=== PATIENT | female | born 1985 | race Caucasian/White ===

== ENCOUNTER 2019-09-05 09:17 | Outpatient (CLI) | payer OTHER ==
--- NOTE | 2019-09-05 15:22 | ULT ---
OB ULTRASOUND: 09/05/19 HISTORY: Size and dates. Real time imaging of the pelvis shows a single viable intrauterine in a breech presentation . The placenta is anterior in location without evidence of previa. Amniotic fluid is adequate for thi s stage of . Cervical canal length is 4.2 cm. Amniotic fluid index is 15.6. The heart rate is 148 beats per minute. Review of anatomy shows normal head, cerebellum, four chamber heart, stomach and kidneys. Cord insertion was never well visualized. There does appear to be a three vessel cord. Spine and extremiti es appear unremarkable. measurements are as follows: BPD 5.3 cm 22 weeks, 1 day Head circumference 20 cm 22 weeks, 1 day Abdominal circumference 17.8 cm 22 weeks, 4 days Femur length 3.9 cm 22 weeks, 4 days IMPRESSION: Single viable intrauterine in a breech presentation. Overall measurements corresponding to a gestational age of 22 weeks, 2 days. Estimated date of delivery 01/07/20. Placenta which is anterior in location without evidence of previa. POS: [facility]
== END 2019-09-05 09:18 | disposition home or self-care (01) ==
LOC: NAV ULT 09:17
PROVIDERS: ATTEND Family Medicine
DX: O09.522 Supervision of elderly multigravida, second trimester (principal); Z3A.22 22 weeks gestation of pregnancy
CPT/HCPCS: 76805